=== PATIENT | male | born 1990 | race Two or more races ===

== ENCOUNTER 2018-05-07 13:45 | Emergency (ER) | payer SELFPAY ==
[~2018-05-07] VITALS: Ht 180.3 cm; Wt 77.3 kg
[2018-05-07 13:47] VITALS: BP 137/81
== END 2018-05-07 15:52 | disposition left against medical advice (07) ==
LOC: EMS 13:46
DX: R53.1 Weakness (principal); Z53.21 Procedure and treatment not carried out due to patient leaving prior to being seen by health care provider